=== PATIENT | female | born 1955 | race American Indian/Alaskan Native ===

== ENCOUNTER 2017-04-29 10:59 | Emergency (ER) | payer MEDICAID, OTHER ==
[2017-04-29 11:05] VITALS: RESP 17; O2SAT 100
[2017-04-29] MEDS ORDERED: Acetaminophen-Codeine 300/30 mg Tab PO STA (11:28)
[2017-04-29] MEDS ORDERED: Acetaminophen-Codeine 300/30 mg Tab PO ONE (11:37)
--- NOTE | 2017-04-29 11:46 | C.PDOC ---
History Of Present Illness 61 y/o female presents to the ED with complaints of toothache to right lower 1st premolar for the past several days. Pt has not seen dentist, she has medicaid. Denies fever, chills or any other complaints. Chief Complaint (Nursing): Dental Pain History Per: Patient History/Exam Limitations: no limitations Onset/Duration Of Symptoms: Days Current Symptoms Are (Timing): Still Present Severity: Moderate Quality: Positive for: "Pain" Recent travel outside of the [place]: No Past Medical History Reviewed: Historical Data, Nursing Documentation, Vital Signs Vital Signs: Last Vital Signs Temp 98.1 F 04/29/17 11:04 Pulse 81 04/29/17 11:04 Resp 17 04/29/17 11:04 BP 166/76 H 04/29/17 11:04 Pulse Ox 100 04/29/17 11:48 - Medical History PMH: Arthritis, Back Problems (Herniated Discs), HTN, Chronic Pain (Back Pain) Family History: States: Unknown Family Hx - Social History Hx Tobacco Use: No Hx Alcohol Use: No Hx Substance Use: No - Immunization History Hx Tetanus Toxoid Vaccination: No Hx Influenza Vaccination: No Hx Pneumococcal Vaccination: No Review Of Systems Constitutional: Negative for: Fever, Chills ENT: Positive for: Other (right lower molar pain). Negative for: Throat Pain Physical Exam - Physical Exam Appears: Non-toxic, No Acute Distress Skin: Warm, Dry, No Rash Head: Atraumatic, Normacephalic, No Swelling (no facial swelling) Ear(s): Bilateral: Normal Nose: Normal Oral Mucosa: Moist Teeth: No Normal Dentition (poor) Gingiva: No Swelling, No Bleeding Throat: Normal, No Erythema Neck: Normal, Normal ROM, Supple Neurological/Psych: Oriented x3, Normal Speech, Normal Cognition ED Course And Treatment O2 Sat by Pulse Oximetry: 100 (room air) Pulse Ox Interpretation: Normal Progress Note: Plan: penicillin, percocet Disposition - Disposition [facility] Disposition: HOME/ ROUTINE Disposition Time: 11:48 Condition: STABLE Additional Instructions: Follow up with dentist within 1-2 days. Return to ED if feel worse. Prescriptions: Penicillin VK [Pen-Vee K] 500 mg PO Q6 #28 tab Acetaminophen/Codeine [Tylenol/Codeine 300 MG/30 MG] 1 tab PO Q4H #30 tab Instructions: Toothache (ED) Forms: [facility] - Clinical Impression Clinical Impression: Toothache - PA / [employer]PAIR / Resident Statement MD/DO has reviewed & agrees with the documentation as recorded. - Scribe Statement The provider has reviewed the documentation as recorded by the Scribe Bradley Rose All medical record entries made by the Scribe were at my direction and personally dictated by me. I have reviewed the chart and agree that the record accurately reflects my personal performance of the history, physical exam, medical decision making, and the department course for this patient. I have also personally directed, reviewed, and agree with the discharge instructions and disposition.
[2017-04-29 12:16] VITALS: BP 149/82; PULSE 68; TEMP 98.4
== END 2017-04-29 12:16 | disposition home or self-care (01) ==
LOC: C.ER 10:59
DX: K08.89 Other specified disorders of teeth and supporting structures (principal)